=== PATIENT | male | born 1960 | race Caucasian/White ===

== ENCOUNTER 2022-12-07 00:45 | Emergency (ER) | payer OTHER ==
[~2022-12-07] VITALS: Ht 177.8 cm; Wt 94.3 kg
--- NOTE | 2022-12-07 00:49 | NUR ---
C/O RASH TO HANDS AND BILATERAL LEGS x3 DAYS MEDHX- ANGIOPLASTY ALLX- PCN
[2022-12-07 00:50] VITALS: BP 149/92
--- NOTE | 2022-12-07 00:56 | NUR ---
PT TO BED #9
--- NOTE | 2022-12-07 01:40 | NUR ---
Pt is alert and oriented x 4. no distress noted
--- NOTE | 2022-12-07 02:00 | NUR ---
at the bedside
[2022-12-07] MEDS ORDERED: SULF-59 PO (02:11)
[2022-12-07] MEDS ORDERED: ACET-10509 PO (02:11)
[2022-12-07 02:20] VITALS: BP 149/92
--- NOTE | 2022-12-07 02:23 | NUR ---
Patient discharged with v/s stable. Written and verbal after care instructions given and explained. Patient alert, oriented and verbalized understanding of instructions. Ambulatory with steady gait. All questions addressed prior to discharge. ID band removed. Patient advised to follow up with PMD. Rx of tylenol and bactrim given. Patient educated on indication of medication including possible reaction and side effects. Opportunity to ask questions provided and answered.pt left with his belongings
== END 2022-12-07 02:23 | disposition home or self-care (01) ==
LOC: MED 00:45
DX: L03.114 Cellulitis of left upper limb (principal); Z88.0 Allergy status to penicillin; Z79.899 Other long term (current) drug therapy; Z98.890 Other specified postprocedural states
CPT/HCPCS: 99283

== ENCOUNTER 2023-03-07 23:54 | Emergency (ER) | payer OTHER ==
[~2023-03-07] VITALS: Ht 180.3 cm; Wt 99.8 kg
[~2023-03-07 23:54] MED LIST: ACET-10509 PO; SULF-59 PO
[2023-03-08 00:03] VITALS: BP 137/80; PULSE 81; RESP 18; TEMP 97.6; O2SAT 96
[2023-03-08] MEDS ORDERED: KETOROLAC 30 MG/ML VIAL IM ONE (03:00)
[2023-03-08] MEDS ORDERED: ACET-8905 PO (04:01)
[2023-03-08] MEDS ORDERED: CLIN300C50 PO (04:01)
[2023-03-08] MEDS ORDERED: NAPR-54 PO (04:01)
[2023-03-08 04:35] VITALS: BP 158/82; PULSE 82; RESP 18; TEMP 98; O2SAT 98
== END 2023-03-08 04:46 | disposition home or self-care (01) ==
LOC: MED 23:54
DX: L03.115 Cellulitis of right lower limb (principal); Z88.0 Allergy status to penicillin; Z88.1 Allergy status to other antibiotic agents; Z88.2 Allergy status to sulfonamides; Z79.899 Other long term (current) drug therapy
CPT/HCPCS: 96372; 99284; J1885

== ENCOUNTER 2023-03-23 23:55 | Emergency (ER) | payer OTHER ==
[~2023-03-23] VITALS: Ht 180.3 cm; Wt 97.5 kg
[~2023-03-23 23:55] MED LIST changes: +ACET-8905 PO; +CLIN300C50 PO; +NAPR-54 PO
[2023-03-24 00:04] VITALS: PULSE 68; RESP 17; TEMP 98; O2SAT 97
[2023-03-24] MEDS ORDERED: DOXY-690 PO (02:45)
[2023-03-24] MEDS ORDERED: KETOROLAC 15 MG/ML VIAL IM ONE (02:45)
[2023-03-24] MEDS ORDERED: predniSONE 20 MG TAB PO ONE (02:45)
[2023-03-24] MEDS ORDERED: ACETAMINOPHEN EXTRA STRENGTH 500 MG TAB PO ONE (02:45)
[2023-03-24] MEDS ORDERED: PRED20TA5 PO (02:46)
[2023-03-24] MEDS ORDERED: LORATADINE 10 MG TAB PO ONE (02:50)
[2023-03-24] MEDS: DOXYCYCLINE 100 MG CAP PO SCH ×2 (04:02→04:04)
[2023-03-24 04:13] VITALS: BP 134/64; PULSE 68; RESP 17; TEMP 98; O2SAT 97
== END 2023-03-24 04:13 | disposition home or self-care (01) ==
LOC: MED 23:55
DX: L03.115 Cellulitis of right lower limb (principal); I10 Essential (primary) hypertension; Z88.0 Allergy status to penicillin; Z88.1 Allergy status to other antibiotic agents; Z88.2 Allergy status to sulfonamides; Z79.899 Other long term (current) drug therapy
CPT/HCPCS: 96372; 99284; J1885